=== PATIENT | male | born 1945 | race Caucasian/White ===

== ENCOUNTER 2016-07-10 09:11 | Inpatient (IN) | payer MEDICARE, BC ==
[~2016-07-10] VITALS: Ht 174 cm; Wt 82.1 kg
[~2016-07-10 09:11] MED LIST: BACITRACIN 50,000 UNIT ONE; BUPIVACAINE/PF 0.25% ONE; BUPIVACAINE/PF-EPI 0.25% 1:200K ONE; THROMBIN 5,000 UNIT VIAL TP ONE
[2016-07-10 10:11] VITALS: BP 120/81
[2016-07-10] MEDS ORDERED: LACTATED RINGERS 1,000 ML IV SCH (10:17)
[2016-07-10] MEDS ORDERED: LIDOCAINE 1%, 2ML SQ PRN (10:30)
[2016-07-10] MEDS ORDERED: PLEASE ENTER ALLERGIES MC SCH ×2 (10:30)
[2016-07-10] MEDS ORDERED: NORT25CA PO (10:32)
[2016-07-10] MEDS ORDERED: EPLE25TA4 PO (10:32)
[2016-07-10] MEDS ORDERED: CARI350T14 PO (10:32)
[2016-07-10] MEDS ORDERED: CARV-39 PO (10:32)
[2016-07-10] MEDS ORDERED: SIMV20TA3 PO (10:32)
[2016-07-10] MEDS ORDERED: ZOLP10TA5 PO (10:32)
[2016-07-10] MEDS ORDERED: OXYC20TA42 PO ×2 (10:32→10:42)
[2016-07-10] MEDS ORDERED: DUTA0.5C PO (10:32)
[2016-07-10] MEDS ORDERED: OMEP20TA62 PO (10:32)
[2016-07-10] MEDS ORDERED: DULO60CA7 PO (10:32)
[2016-07-10] MEDS ORDERED: PROBIOTICS (10:32)
[2016-07-10] MEDS ORDERED: IBUP800T PO (10:32)
[2016-07-10] MEDS ORDERED: GABA600T2 PO (10:32)
[2016-07-10] MEDS ORDERED: PROBIOTICS PO (10:32)
[2016-07-10] MEDS ORDERED: ALPR0.25 PO (10:32)
[2016-07-10] MEDS ORDERED: CHOL20002 PO (10:32)
[2016-07-10] MEDS ORDERED: DOCU-30 PO (10:32)
[2016-07-10] MEDS ORDERED: LISI2.5T PO (10:32)
[2016-07-10] MEDS ORDERED: HYDR-3144 PO (10:32)
[2016-07-10] MEDS ORDERED: TAMS0.4C2 PO (10:32)
[2016-07-10] MEDS ORDERED: OXYC40TA27 PO (10:42)
[2016-07-10] MEDS ORDERED: MIDAZOLAM 1 MG/ML, 2ML ONE (11:09)
[2016-07-10] MEDS ORDERED: FENTANYL PF 250 MCG/5ML ONE (11:09)
[2016-07-10] MEDS ORDERED: ASPI-621 PO (11:12)
[2016-07-10] MEDS ORDERED: DEXAMETHASONE 4 MG/ML, 1ML ONE (12:31)
[2016-07-10] MEDS ORDERED: SUCCINYLCHOLINE 20 MG/ML, 10ML ONE (12:31)
[2016-07-10] MEDS ORDERED: CEFAZOLIN 1,000 MG ONE (12:31)
[2016-07-10] MEDS ORDERED: ONDANSETRON 2MG/ML, 2ML ONE (12:31)
[2016-07-10] MEDS ORDERED: ROCURONIUM 10 MG/ML ONE (12:31)
[2016-07-10] MEDS ORDERED: PROPOFOL 10 MG/ML, 20ML ONE (12:31)
[2016-07-10] MEDS ORDERED: EPHEDRINE 50 MG/ML, 1ML ONE (12:31)
[2016-07-10] MEDS ORDERED: GLYCOPYRROLATE 0.2MG/1ML ONE (12:31)
[2016-07-10] MEDS ORDERED: HYDROmorphone 2 MG/ML, 1ML ONE (14:21)
[2016-07-10] MEDS ORDERED: OXYcodone 5 MG/5 ML ORAL.SOL UDC ONE (14:21)
[2016-07-10] MEDS ORDERED: ACETAMINOPHEN 650 MG/20.3 ML UDC ONE (14:21)
[2016-07-10] MEDS ORDERED: FENTANYL PF 100 MCG/2ML ONE (14:21)
[2016-07-10] MEDS: FENTANYL PF 100 MCG/2ML IV PRN ×2 (14:25→14:40)
[2016-07-10] MEDS ORDERED: OXYcodone 5 MG/5 ML ORAL.SOL UDC PO PRN (14:30)
[2016-07-10] MEDS ORDERED: HYDROcodone/APAP 5/325 TABLET PO PRN (14:30)
[2016-07-10] MEDS ORDERED: ONDANSETRON 2MG/ML, 2ML IVPush PRN ×2 (14:30)
[2016-07-10] MEDS ORDERED: CYCLOBENZAPRINE 10 MG TABLET PO PRN (14:30)
[2016-07-10] MEDS ORDERED: hydrALAzine 20 MG/ML, 1ML IV PRN (14:30)
[2016-07-10] MEDS ORDERED: DIPHENHYDRAMINE 50 MG/ML, 1ML IVPush PRN (14:30)
[2016-07-10] MEDS ORDERED: LABETALOL 5MG/ML, 20ML IV PRN (14:30)
[2016-07-10] MEDS ORDERED: HYDROcodone/APAP 10/325 MG TABLET PO PRN (14:30)
[2016-07-10] MEDS ORDERED: BISACODYL 10 MG SUPP PR PRN (14:30)
[2016-07-10] MEDS ORDERED: ZOLPIDEM 10MG TABLET PO PRN (14:30)
[2016-07-10] MEDS ORDERED: ACETAMINOPHEN 325 MG TABLET PO PRN (14:30)
[2016-07-10] MEDS ORDERED: PROMETHAZINE 25 MG/ML, 1ML IM PRN (14:30)
[2016-07-10] MEDS ORDERED: PHARMACY MAY ADJ FOR RENAL FX MC PRN (14:30)
[2016-07-10] MEDS ORDERED: MAGNESIUM HYDROXIDE 8%, 30ML UDC PO PRN (14:30)
[2016-07-10] MEDS: HYDROmorphone 1 MG/ML, 1ML IV PRN ×4 (14:34→15:05)
[2016-07-10] MEDS: CARISOPRODOL 350 MG TABLET PO SCH ×2 (16:00→20:44)
[2016-07-10] MEDS: GABAPENTIN 300 MG CAPSULE PO SCH ×2 (16:00→20:41)
[2016-07-10] MEDS: OCULAR LUBRICANT OPHTH OINT 3.5 GM EACHEYE PRN ×2 (16:06→18:30)
[2016-07-10] MEDS: morphine SULFATE 10 MG/ML, 1ML IVPush PRN ×2 (16:50→18:23)
[2016-07-10] MEDS ORDERED: OXYCODONE MC SCH (17:00)
[2016-07-10] MEDS ORDERED: OCULAR LUBRICANT OPHTH OINT 3.5 GM EACHEYE PRN (17:30)
[2016-07-10] MEDS: TETRACAINE/PF OPHTH 0.5%, 4ML EACHEYE PRN ×5 (18:30→23:29)
[2016-07-10] MEDS: D5%-0.9% NACL+KCL 20MEQ 1,000 ML IV SCH (18:30)
[2016-07-10 18:59] VITALS: BP 124/74
[2016-07-10] MEDS ORDERED: OxyconTIN ER 20 MG TAB.ER ONE (20:32)
[2016-07-10] MEDS: SODIUM CHLORIDE FLUSH 10ML SYR IVF SCH (20:37)
[2016-07-10] MEDS: CEFAZOLIN PMX 1GM/50ML 50 ML IVPB SCH (20:37)
[2016-07-10] MEDS: CARVEDILOL 25 MG TABLET PO SCH (20:41)
[2016-07-10] MEDS: OxyconTIN ER 40 MG TAB.ER PO SCH (20:42)
[2016-07-10] MEDS: OMEPRAZOLE 20 MG CAPSULE.DR PO SCH (20:44)
[2016-07-10] MEDS ORDERED: DOCUSATE 100 MG CAPSULE PO SCH (21:00)
[2016-07-10] MEDS ORDERED: TAMSULOSIN 0.4 MG CAP.ER.24H PO SCH (21:00)
[2016-07-10] MEDS ORDERED: SIMVASTATIN 20 MG TABLET PO SCH (21:00)
[2016-07-10] MEDS ORDERED: NORTRIPTYLINE 25 MG CAPSULE PO SCH (21:00)
[2016-07-10] MEDS: HYDROmorphone 2MG TABLET PO PRN (22:20)
[2016-07-10 23:45] VITALS: BP 108/62
[2016-07-11] MEDS: HYDROmorphone 2MG TABLET PO PRN (02:53)
[2016-07-11] MEDS: TETRACAINE/PF OPHTH 0.5%, 4ML EACHEYE PRN (02:54)
[2016-07-11 03:08] VITALS: BP 115/61
[2016-07-11] MEDS: D5%-0.9% NACL+KCL 20MEQ 1,000 ML IV SCH (04:30)
[2016-07-11] MEDS: CEFAZOLIN PMX 1GM/50ML 50 ML IVPB SCH (05:29)
[2016-07-11] MEDS: OXYcodone/APAP 5/325MG TABLET PO PRN ×2 (05:30→09:46)
[2016-07-11 07:37] VITALS: BP 101/61
[2016-07-11] MEDS: CARISOPRODOL 350 MG TABLET PO SCH (09:00)
[2016-07-11] MEDS ORDERED: DUTASTERIDE 0.5 MG CAPSULE PO SCH (09:00)
[2016-07-11] MEDS: OxyconTIN ER 40 MG TAB.ER PO SCH (09:00)
[2016-07-11] MEDS ORDERED: EPLERENONE HOMEMEDPO SCH (09:00)
[2016-07-11] MEDS ORDERED: DULOXETINE 30 MG CAPSULE.DR PO SCH (09:00)
[2016-07-11] MEDS: SODIUM CHLORIDE FLUSH 10ML SYR IVF SCH (09:00)
[2016-07-11] MEDS ORDERED: LISINOPRIL 5 MG TABLET PO SCH (09:00)
[2016-07-11] MEDS ORDERED: OxyconTIN ER 20 MG TAB.ER ONE ×2 (09:38)
[2016-07-11] MEDS: CARVEDILOL 25 MG TABLET PO SCH (09:45)
[2016-07-11] MEDS: OMEPRAZOLE 20 MG CAPSULE.DR PO SCH (09:45)
[2016-07-11] MEDS: GABAPENTIN 300 MG CAPSULE PO SCH (09:45)
[2016-07-11] MEDS ORDERED: OxyconTIN ER 20 MG TAB.ER PO SCH (12:00)
[2016-07-11] MEDS ORDERED: OXYC-302 PO (12:17)
[2016-07-11] MEDS ORDERED: CEPH-368 PO (12:17)
== END 2016-07-11 12:40 | disposition home or self-care (01) | DRG 517 ==
LOC: OUT 09:11 → ORIP 14:11 → 4NOR 16:18 → DCLOUNGE 07-11 11:55
PROVIDERS: ADMIT Neurological Surgery; ATTEND Neurological Surgery
PROC: 01NB0ZZ Release Lumbar Nerve, Open Approach (ICD-10-PCS; principal; 2016-07-10 12:30)
DX: M48.06 Spinal stenosis, lumbar region (principal); I73.9 Peripheral vascular disease, unspecified; I25.10 Atherosclerotic heart disease of native coronary artery without angina pectoris; M19.90 Unspecified osteoarthritis, unspecified site; M54.16 Radiculopathy, lumbar region; G43.909 Migraine, unspecified, not intractable, without status migrainosus; G89.29 Other chronic pain; Z90.49 Acquired absence of other specified parts of digestive tract; Z87.891 Personal history of nicotine dependence
CPT/HCPCS: 72100; J0690; J1100; J1170; J2250; J2405; J2704; J3010; J3490; J0330; J2270; J3480; J7120